=== PATIENT | male | born 1990 | race Caucasian/White ===

== ENCOUNTER 2017-04-27 15:40 | Emergency (ER) | payer MEDICAID | END 2017-04-27 18:27 | disposition home or self-care (01) | LOC: FTE 15:40 → E/R 18:27 | DX: S42.401A Unspecified fracture of lower end of right humerus, initial encounter for closed fracture (principal); W18.39XA Other fall on same level, initial encounter; Y92.9 Unspecified place or not applicable | CPT/HCPCS: 99282; Z7502 ==